=== PATIENT | male | born 1950 | race Caucasian/White ===

== ENCOUNTER 2017-11-06 04:26 | Emergency (ER) | payer OTHER ==
[2017-11-06] MEDS: CEFAZOLIN 1 GM INJ IM (05:26)
== END 2017-11-06 06:04 | disposition home or self-care (01) ==
LOC: FTE 04:26
DX: S61.012A Laceration without foreign body of left thumb without damage to nail, initial encounter (principal); W26.8XXA Contact with other sharp object(s), not elsewhere classified, initial encounter; Y92.89 Other specified places as the place of occurrence of the external cause
CPT/HCPCS: 12001; 96372; 99284-25

== ENCOUNTER 2017-11-08 06:22 | Emergency (ER) | payer OTHER | END 2017-11-08 07:39 | disposition home or self-care (01) | LOC: FTE 06:22 | DX: Z48.01 Encounter for change or removal of surgical wound dressing (principal) | CPT/HCPCS: 99283 ==